=== PATIENT | female | born 1995 | race Caucasian/White ===

== ENCOUNTER 2022-08-23 10:49 | Emergency (ER) | payer OTHER ==
[~2022-08-23] VITALS: Ht 160 cm; Wt 38.6 kg
[2022-08-23] MEDS ORDERED: PIPERACILLIN /TAZOBACTAM 2.25 G in IV D5W 50 ML IV ONE (11:30)
[2022-08-23] MEDS ORDERED: KETOROLAC TROMETHAMINE INJ 30 MG/ML VIAL IV ONE (11:30)
[2022-08-23] MEDS ORDERED: KETOROLAC TROMETHAMINE 15 MG/ML VIAL ONE (11:38)
--- NOTE | 2022-08-23 11:55 | NUR ---
iv line established on rac #[id number], blood drawn and sent to lab
[2022-08-23 12:05] LABS: BASOPHILS % (AUTO) 0.6 % (0.0-2.0); EOSINOPHILS % (AUTO) 0.5 % (0.0-6.0); HEMATOCRIT 39 % (33-45); HEMOGLOBIN 13.2 g/dL (11.5-14.8); LYMPHOCYTES # (AUTO) 0.5 K/uL (0.8-4.8); LYMPHOCYTES % (AUTO) 8.2 % (20.0-44.0); MEAN CORPUSCULAR HGB CONC 34 g/dl (31.0-36.0); MEAN CORPUSCULAR VOLUME 94 fL (82-100); MONOCYTES # (AUTO) 0.6 K/uL (0.1-1.30); MONOCYTES % (AUTO) 9.2 % (2.0-12.0); NEUTROPHILS # (AUTO) 5.2 K/uL (1.8-8.9); NEUTROPHILS % (AUTO) 81.5 % (43.0-81.0); PLATELET COUNT (AUTO) 288 K/uL (150-450); RED BLOOD CELL COUNT(AUTO) 4.19 MIL/uL (4.0-5.2); WHITE BLOOD COUNT (AUTO) 6.4 K/uL (4.3-11.0)
--- NOTE | 2022-08-23 12:08 | NUR ---
WAIVER AND CONTRAST QUESTIONNAIRE SIGNED BY PT AND PLACED IN CHART.
--- NOTE | 2022-08-23 12:19 | NUR ---
PT TAKEN TO RADIOLOGY FOR CT
[2022-08-23] MEDS ORDERED: IOHEXOL-300 100 ML VIAL IV ONE (12:21)
[2022-08-23] MEDS ORDERED: IV NS 0.9% 250 ML IV ONE (12:22)
[2022-08-23] MEDS ORDERED: CT SWABBABLE VALVE TRANS SET 1 EA INFUS.SET MC ONE (12:22)
[2022-08-23 12:27] LABS: CREATININE 0.5 mg/dL (0.6-1.3); POTASSIUM 3.8 mmol/L (3.5-5.1)
[2022-08-23 12:31] LABS: C-REACTIVE PROTEIN 7.3 mg/dL (0.0-0.9)
--- NOTE | 2022-08-23 12:35 | NUR ---
PT HAS LEFT FLOOR TO GO TO CT AT THIS TIME
--- NOTE | 2022-08-23 12:42 | NUR ---
PT RETURNED FROM CT
--- NOTE | 2022-08-23 12:45 | NUR ---
UA COLLECTED AT THIS TIME READY FOR PICKUP
--- NOTE | 2022-08-23 13:27 | NUR ---
DR MENDEZ CONSULTING W/ DR LUCIO.
--- NOTE | 2022-08-23 13:45 | NUR ---
IV removed. Catheter intact and site benign. Pressure and 4x4 applied to site. No bleeding noted.
--- NOTE | 2022-08-23 13:50 | NUR ---
Patient discharged to home in stable condition; instructed by dr. piña to proceed to dr. rowland's office. Written and verbal after care instructions given. Patient verbalizes understanding of instruction.
[2022-08-23 13:51] VITALS: BP 106/63
== END 2022-08-23 13:51 | disposition home or self-care (01) ==
LOC: ER 11:00
DX: K09.0 Developmental odontogenic cysts (principal); G43.909 Migraine, unspecified, not intractable, without status migrainosus
CPT/HCPCS: 99285; 96365; 70491; 96375; 85025; 80048; 84703; 85652; 36415; 85730; 86140; J2543; J7060; J7050; Q9967; J1885